=== PATIENT | male | born 1985 | race Caucasian/White ===

== ENCOUNTER 2019-05-08 21:35 | Emergency (ER) | payer SELFPAY, OTHER ==
[2019-05-08] MEDS: HYDROCODONE/APAP (5/325) TAB PO (22:11)
[2019-05-08] MEDS: KETOROLAC 30 MG INJ IM (22:11)
== END 2019-05-08 23:11 | disposition home or self-care (01) ==
LOC: FTE 21:35
DX: M25.522 Pain in left elbow (principal)
CPT/HCPCS: 73080; 73080-LT; 73090; 96372; 99284-25